=== PATIENT | female | born 1980 | race African-American/Black ===

== ENCOUNTER 2020-05-24 12:41 | Inpatient (IN) | payer OTHER ==
[~2020-05-24] VITALS: Ht 167.6 cm; Wt 87.2 kg
[2020-05-24] VITALS (8 sets, daily range): BP systolic 86–140; BP diastolic 58–90
[~2020-05-24 12:41] MED LIST: NALOXONE HCL INJ 0.4 MG/ML AMP ONE
[2020-05-24] MEDS: SODIUM CHLORIDE 0.9% 1000ML 1,000 ML IV SCH ×2 (13:51→19:55)
[2020-05-24] MEDS: ONDANSETRON HCL INJ 2MG/ML 2ML 2 MG/ML VIAL IV PRN (13:51)
[2020-05-24 13:57] LABS: BASOPHILS % 0.1 % (0.0-1.0); HEMATOCRIT 38.7 % (34.2-44.1); HEMOGLOBIN 11.3 g/dL (12.0-16.0); LYMPHOCYTES # (AUTO) 0.8 (1.0-3.2); LYMPHOCYTES % 11.7 % (18.0-39.1); MEAN CORPUSCULAR HEMOGLOBIN 30.6 pg (28-32); MEAN CORPUSCULAR HGB CONC 29.2 g/dL (31-35); MEAN CORPUSCULAR VOLUME 104.9 fL (81-99); MONOCYTES # (AUTO) 0.2 (0.2-0.8); MONOCYTES % 3.3 % (4.4-11.3); NEUTROPHILS # (AUTO) 5.8 (2.1-6.9); NEUTROPHILS % 84.5 % (38.7-80.0); PLATELET COUNT 155 x10e3/uL (140-360); RED BLOOD COUNT 3.69 x10e6/uL (3.6-5.1); RED CELL DISTRIBUTION WIDTH 12.3 % (11.7-14.4)
[2020-05-24] MEDS ORDERED: FENTANYL CITRATE/PF 100MCG/2 ML INJ IV PRN (14:00)
[2020-05-24 14:19] LABS: ALANINE AMINOTRANSFERASE 11 IU/L (0-55); ALBUMIN/GLOBULIN RATIO 0.9 (0.8-2.0); ALKALINE PHOSPHATASE 52 IU/L (40-150); ANION GAP 10.5 mmol/L (8-16); BLOOD UREA NITROGEN 20 mg/dL (7-26); BUN/CREATININE RATIO 25 (6-25); CHLORIDE 76 mmol/L (98-107); CREATININE, SERUM 0.81 mg/dL (0.57-1.11); EST GLOMERULAR FILTRATION RATE > 60 ML/MIN (60-); GLUCOSE 145 mg/dL (74-118); POTASSIUM 3.5 mmol/L (3.5-5.1); SODIUM 133 mmol/L (136-145)
[2020-05-24 14:21] LABS: CARBON DIOXIDE 50 mmol/L (22-29)
[2020-05-24 14:40] LABS: LIPASE 86 U/L (8-78)
[2020-05-24 15:22] LABS: HCG,QUANTITATIVE < 1.20 mIU/mL (0-10)
[2020-05-24] MEDS ORDERED: SODIUM CHLORIDE 0.9% 50ML 50 ML ONE (17:07)
[2020-05-24] MEDS ORDERED: IOPAMIDOL 370 MG/ML 200 ML INFUS..BTL INJ ONE (17:07)
[2020-05-24 17:30] LABS: SALICYLATE < 5.0 mg/dL (0-30)
[2020-05-24] MEDS ORDERED: ZOLPIDEM TARTRAT5 MG PO (18:20)
[2020-05-24] MEDS ORDERED: GABAPENTIN300 MG PO (18:20)
[2020-05-24] MEDS ORDERED: ATENOLOL50 MG PO (18:20)
[2020-05-24] MEDS ORDERED: MESTINON60 MG PO (18:21)
[2020-05-24] MEDS ORDERED: PREDNISONE5 MG PO (18:21)
[2020-05-24] MEDS ORDERED: HYDROCHLOROTHIA25 MG PO (18:23)
[2020-05-24] MEDS ORDERED: HYDROCORTISONE SOD SUCCINATE 100 MG VIAL IV ONE (18:45)
[2020-05-24] MEDS: CEFTRIAXONE SOD 1 GM/NS 50 ML 50 ML IV SCH (18:55)
[2020-05-24] MEDS: PYRIDOSTIGMINE BROMIDE 60 MG TAB PO SCH (19:00)
[2020-05-24] MEDS ORDERED: HYDROCORTISONE SOD SUCCINATE 100 MG VIAL IV SCH (19:00)
[2020-05-24] MEDS: AZITHROMYCIN 500MG/NS 250 ML 250 ML IV SCH (19:55)
[2020-05-24] MEDS ORDERED: NALOXONE HCL INJ 0.4 MG/ML AMP IV PRN (21:30)
[2020-05-24] MEDS ORDERED: SODIUM CHLORIDE 0.9% 1000ML 250 ML IV ONE (21:30)
[2020-05-25] VITALS (26 sets, daily range): BP systolic 104–163; BP diastolic 62–103
[2020-05-25] MEDS: PYRIDOSTIGMINE BROMIDE 60 MG TAB PO SCH ×3 (00:53→18:03)
[2020-05-25 02:48] LABS: AMPHETAMINES SCREEN,URINE NEGATIVE (NEGATIVE); BENZODIAZEPINES SCREEN,URINE NEGATIVE (NEGATIVE); BILIRUBIN,URINE NEGATIVE (NEGATIVE); CLARITY,URINE SL CLOUDY (CLEAR); COLOR,URINE YELLOW (YELLOW); KETONES,URINE NEGATIVE (NEGATIVE); LEUKOCYTE ESTERASE ,URINE NEGATIVE (NEGATIVE); NITRITE,URINE NEGATIVE (NEGATIVE); PHENCYCLIDINE SCREEN,URINE NEGATIVE (NEGATIVE); PROTEIN,URINE DIPSTICK 1+ (NEGATIVE); URINE UROBILINOGEN 1 mg/dL (0.2 - 1)
[2020-05-25 02:51] LABS: BACTERIA,URINE MODERATE /HPF; EPITHELIAL CELLS,URINE MODERATE /LPF
[2020-05-25 06:14] LABS: BASOPHILS % 0.1 % (0.0-1.0); HEMATOCRIT 33.2 % (34.2-44.1); HEMOGLOBIN 9.6 g/dL (12.0-16.0); LYMPHOCYTES # (AUTO) 1.3 (1.0-3.2); MEAN CORPUSCULAR HEMOGLOBIN 30.2 pg (28-32); MEAN CORPUSCULAR HGB CONC 28.9 g/dL (31-35); MEAN CORPUSCULAR VOLUME 104.4 fL (81-99); MONOCYTES # (AUTO) 0.6 (0.2-0.8); NEUTROPHILS # (AUTO) 5.4 (2.1-6.9); NEUTROPHILS % 73.2 % (38.7-80.0); PLATELET COUNT 120 x10e3/uL (140-360); RED BLOOD COUNT 3.18 x10e6/uL (3.6-5.1); RED CELL DISTRIBUTION WIDTH 12.4 % (11.7-14.4)
[2020-05-25 06:41] LABS: ANION GAP 12.5 mmol/L (8-16); BLOOD UREA NITROGEN 18 mg/dL (7-26); BUN/CREATININE RATIO 25 (6-25); CALCIUM 8.4 mg/dL (8.4-10.2); CHLORIDE 86 mmol/L (98-107); CREATININE, SERUM 0.72 mg/dL (0.57-1.11); EST GLOMERULAR FILTRATION RATE > 60 ML/MIN (60-); GLUCOSE 75 mg/dL (74-118); POTASSIUM 3.5 mmol/L (3.5-5.1)
[2020-05-25 06:55] LABS: CARBON DIOXIDE 45 mmol/L (22-29)
[2020-05-25 06:56] LABS: SODIUM 140 mmol/L (136-145)
[2020-05-25] MEDS: HYDROCORTISONE SOD SUCCINATE 100 MG VIAL IV SCH ×2 (07:44→18:03)
[2020-05-25] MEDS: SODIUM CHLORIDE 0.9% 1000ML 1,000 ML IV SCH (07:44)
[2020-05-25] MEDS: AZITHROMYCIN 500MG/NS 250 ML 250 ML IV SCH (18:03)
[2020-05-25] MEDS: CEFTRIAXONE SOD 1 GM/NS 50 ML 50 ML IV SCH (18:03)
[2020-05-25] MEDS: ZOLPIDEM TARTRATE 5 MG TAB PO PRN (20:38)
[2020-05-25] MEDS: ATENOLOL 50 MG TAB PO SCH (22:32)
[2020-05-26] VITALS (23 sets, daily range): BP systolic 102–146; BP diastolic 59–95
[2020-05-26] MEDS: PYRIDOSTIGMINE BROMIDE 60 MG TAB PO SCH ×3 (02:45→17:49)
[2020-05-26 05:08] LABS: BASOPHILS % 0.1 % (0.0-1.0); EOSINOPHILS % 0.1 % (0.0-6.0); HEMATOCRIT 31.3 % (34.2-44.1); LYMPHOCYTES # (AUTO) 1.8 (1.0-3.2); LYMPHOCYTES % 22.9 % (18.0-39.1); MEAN CORPUSCULAR HEMOGLOBIN 29.7 pg (28-32); MEAN CORPUSCULAR HGB CONC 28.8 g/dL (31-35); MEAN CORPUSCULAR VOLUME 103.3 fL (81-99); MONOCYTES # (AUTO) 0.6 (0.2-0.8); MONOCYTES % 7.9 % (4.4-11.3); NEUTROPHILS # (AUTO) 5.3 (2.1-6.9); NEUTROPHILS % 68.1 % (38.7-80.0); PLATELET COUNT 132 x10e3/uL (140-360); RED BLOOD COUNT 3.03 x10e6/uL (3.6-5.1); RED CELL DISTRIBUTION WIDTH 12.6 % (11.7-14.4)
[2020-05-26 05:20] LABS: ALANINE AMINOTRANSFERASE 8 IU/L (0-55); ALBUMIN 3.2 g/dL (3.5-5.0); ALKALINE PHOSPHATASE 36 IU/L (40-150); ANION GAP 10.3 mmol/L (8-16); BLOOD UREA NITROGEN 16 mg/dL (7-26); BUN/CREATININE RATIO 23 (6-25); CALCIUM 8.6 mg/dL (8.4-10.2); CHLORIDE 89 mmol/L (98-107); CREATININE, SERUM 0.71 mg/dL (0.57-1.11); EST GLOMERULAR FILTRATION RATE > 60 ML/MIN (60-); GLUCOSE 82 mg/dL (74-118); POTASSIUM 3.3 mmol/L (3.5-5.1); SODIUM 144 mmol/L (136-145)
[2020-05-26 05:27] LABS: CARBON DIOXIDE 48 mmol/L (22-29)
[2020-05-26] MEDS: HYDROCORTISONE SOD SUCCINATE 100 MG VIAL IV SCH ×2 (06:07→18:28)
[2020-05-26] MEDS ORDERED: ATENOLOL 50 MG TAB PO SCH (09:15)
[2020-05-26 10:02] LABS: ABG PH 7.36 (7.35-7.45)
[2020-05-26 10:03] LABS: ABG PCO2 96 mmHg (35-45); ABG PO2 72 mmHg (80-105)
[2020-05-26 10:04] LABS: ABG HCO3 54 mmol/L (22-26); ABG TCO2 > 50
[2020-05-26] MEDS: CEFTRIAXONE SOD 1 GM/NS 50 ML 50 ML IV SCH (17:49)
[2020-05-26] MEDS: AZITHROMYCIN 500MG/NS 250 ML 250 ML IV SCH (18:21)
[2020-05-26] MEDS ORDERED: HYDROCORTISONE SOD SUCCINATE 100 MG VIAL IV SCH (19:00)
[2020-05-26] MEDS: ATENOLOL 50 MG TAB PO SCH (20:41)
[2020-05-26] MEDS ORDERED: PYRIDOSTIGMINE BROMIDE 60 MG TAB PO SCH (21:00)
[2020-05-26] MEDS: ZOLPIDEM TARTRATE 5 MG TAB PO PRN (23:57)
[2020-05-27] VITALS (7 sets, daily range): BP systolic 117–138; BP diastolic 84–91
[2020-05-27] MEDS: PYRIDOSTIGMINE BROMIDE 60 MG TAB PO SCH ×6 (01:54→19:28)
[2020-05-27 05:05] LABS: MAGNESIUM 1.7 MG/DL (1.3-2.1); PHOSPHORUS 3.1 MG/DL (2.3-4.7)
[2020-05-27] MEDS ORDERED: HYDRALAZINE HCL 20 MG/ML VIAL IV PRN (05:15)
[2020-05-27] MEDS: HYDROCORTISONE SOD SUCCINATE 100 MG VIAL IV SCH (06:38)
[2020-05-27 08:30] LABS: BASOPHILS % 0.3 % (0.0-1.0); EOSINOPHILS % 0.1 % (0.0-6.0); HEMATOCRIT 34.3 % (34.2-44.1); HEMOGLOBIN 10.1 g/dL (12.0-16.0); LYMPHOCYTES # (AUTO) 1.5 (1.0-3.2); LYMPHOCYTES % 19.3 % (18.0-39.1); MEAN CORPUSCULAR HEMOGLOBIN 30.4 pg (28-32); MEAN CORPUSCULAR HGB CONC 29.4 g/dL (31-35); MEAN CORPUSCULAR VOLUME 103.3 fL (81-99); MONOCYTES # (AUTO) 0.6 (0.2-0.8); MONOCYTES % 7.5 % (4.4-11.3); NEUTROPHILS # (AUTO) 5.5 (2.1-6.9); NEUTROPHILS % 72.4 % (38.7-80.0); PLATELET COUNT 121 x10e3/uL (140-360); RED BLOOD COUNT 3.32 x10e6/uL (3.6-5.1); RED CELL DISTRIBUTION WIDTH 12.8 % (11.7-14.4)
[2020-05-27] MEDS ORDERED: PREDNISONE 10 MG TAB PO SCH (09:00)
[2020-05-27 09:11] LABS: ALANINE AMINOTRANSFERASE 10 IU/L (0-55); ALBUMIN 3.5 g/dL (3.5-5.0); ALBUMIN/GLOBULIN RATIO 1.1 (0.8-2.0); ALKALINE PHOSPHATASE 35 IU/L (40-150); ANION GAP 9.1 mmol/L (8-16); BLOOD UREA NITROGEN 16 mg/dL (7-26); BUN/CREATININE RATIO 22 (6-25); CALCIUM 8.9 mg/dL (8.4-10.2); CHLORIDE 91 mmol/L (98-107); CREATININE, SERUM 0.72 mg/dL (0.57-1.11); EST GLOMERULAR FILTRATION RATE > 60 ML/MIN (60-); GLUCOSE 88 mg/dL (74-118); POTASSIUM 3.1 mmol/L (3.5-5.1); SODIUM 142 mmol/L (136-145)
[2020-05-27 09:15] LABS: CARBON DIOXIDE 45 mmol/L (22-29)
[2020-05-27] MEDS: FAMOTIDINE 20 MG/2 ML VIAL IV SCH ×2 (10:05→19:25)
[2020-05-27] MEDS: AZATHIOPRINE 50 MG TAB PO SCH (10:25)
[2020-05-27] MEDS: CEFTRIAXONE SOD 1 GM/NS 50 ML 50 ML IV SCH (19:25)
[2020-05-27] MEDS: ATENOLOL 50 MG TAB PO SCH (20:14)
[2020-05-27] MEDS: ZOLPIDEM TARTRATE 5 MG TAB PO PRN (22:37)
[2020-05-28] VITALS (8 sets, daily range): BP systolic 102–146; BP diastolic 61–91
[2020-05-28] MEDS: PYRIDOSTIGMINE BROMIDE 60 MG TAB PO SCH ×6 (03:48→20:29)
[2020-05-28 05:08] LABS: BASOPHILS % 0.1 % (0.0-1.0); EOSINOPHILS # (AUTO) 0.1 (0.0-0.4); EOSINOPHILS % 0.9 % (0.0-6.0); HEMATOCRIT 32.7 % (34.2-44.1); HEMOGLOBIN 9.6 g/dL (12.0-16.0); LYMPHOCYTES # (AUTO) 2.6 (1.0-3.2); LYMPHOCYTES % 38.1 % (18.0-39.1); MEAN CORPUSCULAR HEMOGLOBIN 31.2 pg (28-32); MEAN CORPUSCULAR HGB CONC 29.4 g/dL (31-35); MEAN CORPUSCULAR VOLUME 106.2 fL (81-99); MONOCYTES # (AUTO) 0.6 (0.2-0.8); NEUTROPHILS # (AUTO) 3.5 (2.1-6.9); NEUTROPHILS % 51.5 % (38.7-80.0); PLATELET COUNT 146 x10e3/uL (140-360); RED BLOOD COUNT 3.08 x10e6/uL (3.6-5.1); RED CELL DISTRIBUTION WIDTH 12.9 % (11.7-14.4)
[2020-05-28 05:33] LABS: ANION GAP 9.8 mmol/L (8-16); BLOOD UREA NITROGEN 17 mg/dL (7-26); BUN/CREATININE RATIO 22 (6-25); CHLORIDE 94 mmol/L (98-107); CREATININE, SERUM 0.76 mg/dL (0.57-1.11); EST GLOMERULAR FILTRATION RATE > 60 ML/MIN (60-); GLUCOSE 83 mg/dL (74-118); SODIUM 144 mmol/L (136-145)
[2020-05-28 05:39] LABS: CARBON DIOXIDE 43 mmol/L (22-29); POTASSIUM 2.8 mmol/L (3.5-5.1)
[2020-05-28] MEDS ORDERED: POTASSIUM CHLORIDE 20 MEQ TAB CR PO ONE (08:00)
[2020-05-28] MEDS ORDERED: POTASSIUM CHLORIDE 10MEQ/100ML 200 ML IV ONE (08:00)
[2020-05-28] MEDS: FAMOTIDINE 20 MG/2 ML VIAL IV SCH ×2 (08:14→16:55)
[2020-05-28] MEDS: AZATHIOPRINE 50 MG TAB PO SCH (08:15)
[2020-05-28] MEDS ORDERED: MAGNESIUM SULFATE 2GM/50ML IV ONE (08:30)
[2020-05-28] MEDS ORDERED: MAGNESIUM SULFATE 2GM/50ML 50 ML IV ONE (09:00)
[2020-05-28] MEDS: PREDNISONE 10 MG TAB PO SCH (09:00)
[2020-05-28] MEDS ORDERED: PREDNISONE 20 MG TAB PO ONE (15:00)
[2020-05-28] MEDS: CEFTRIAXONE SOD 1 GM/NS 50 ML 50 ML IV SCH (18:02)
[2020-05-28] MEDS: ATENOLOL 50 MG TAB PO SCH (20:30)
[2020-05-28] MEDS: ZOLPIDEM TARTRATE 5 MG TAB PO PRN (22:20)
[2020-05-29] VITALS (7 sets, daily range): BP systolic 103–143; BP diastolic 65–81
[2020-05-29] MEDS: PYRIDOSTIGMINE BROMIDE 60 MG TAB PO SCH ×6 (00:23→20:46)
[2020-05-29 05:38] LABS: BASOPHILS % 0.1 % (0.0-1.0); EOSINOPHILS % 0.1 % (0.0-6.0); HEMATOCRIT 36.4 % (34.2-44.1); HEMOGLOBIN 10.5 g/dL (12.0-16.0); LYMPHOCYTES # (AUTO) 2.1 (1.0-3.2); LYMPHOCYTES % 23.1 % (18.0-39.1); MEAN CORPUSCULAR HEMOGLOBIN 30.4 pg (28-32); MEAN CORPUSCULAR HGB CONC 28.8 g/dL (31-35); MEAN CORPUSCULAR VOLUME 105.5 fL (81-99); MONOCYTES # (AUTO) 0.6 (0.2-0.8); MONOCYTES % 6.5 % (4.4-11.3); NEUTROPHILS # (AUTO) 6.2 (2.1-6.9); NEUTROPHILS % 69.9 % (38.7-80.0); PLATELET COUNT 160 x10e3/uL (140-360); RED BLOOD COUNT 3.45 x10e6/uL (3.6-5.1); RED CELL DISTRIBUTION WIDTH 12.8 % (11.7-14.4)
[2020-05-29 06:19] LABS: ANION GAP 10.7 mmol/L (8-16); BLOOD UREA NITROGEN 13 mg/dL (7-26); BUN/CREATININE RATIO 19 (6-25); CHLORIDE 96 mmol/L (98-107); EST GLOMERULAR FILTRATION RATE > 60 ML/MIN (60-); GLUCOSE 89 mg/dL (74-118); POTASSIUM 3.7 mmol/L (3.5-5.1); SODIUM 144 mmol/L (136-145)
[2020-05-29 06:23] LABS: CARBON DIOXIDE 41 mmol/L (22-29)
[2020-05-29] MEDS: FAMOTIDINE 20 MG/2 ML VIAL IV SCH ×2 (09:00→17:16)
[2020-05-29] MEDS: AZATHIOPRINE 50 MG TAB PO SCH (10:17)
[2020-05-29] MEDS: PREDNISONE 10 MG TAB PO SCH (10:17)
[2020-05-29] MEDS: CEFTRIAXONE SOD 1 GM/NS 50 ML 50 ML IV SCH (17:16)
[2020-05-29] MEDS: ATENOLOL 50 MG TAB PO SCH (20:47)
[2020-05-30] VITALS (7 sets, daily range): BP systolic 100–160; BP diastolic 61–102
[2020-05-30] MEDS: PYRIDOSTIGMINE BROMIDE 60 MG TAB PO SCH ×6 (04:00→19:55)
[2020-05-30] MEDS: PREDNISONE 10 MG TAB PO SCH (09:21)
[2020-05-30] MEDS: AZATHIOPRINE 50 MG TAB PO SCH (09:21)
[2020-05-30] MEDS: FAMOTIDINE 20 MG/2 ML VIAL IV SCH ×2 (09:21→16:57)
[2020-05-30] MEDS ORDERED: PREDNISONE 10 MG TAB PO ONE (11:45)
[2020-05-30] MEDS: PREDNISONE 20 MG TAB PO SCH (12:00)
[2020-05-30] MEDS: CEFTRIAXONE SOD 1 GM/NS 50 ML 50 ML IV SCH (16:57)
[2020-05-30] MEDS: ONDANSETRON HCL INJ 2MG/ML 2ML 2 MG/ML VIAL IV PRN (19:56)
[2020-05-30] MEDS: LORAZEPAM 0.5 MG TAB PO PRN (19:56)
[2020-05-30] MEDS: ATENOLOL 50 MG TAB PO SCH (19:56)
[2020-05-30] MEDS: ZOLPIDEM TARTRATE 5 MG TAB PO PRN ×3 (19:56→20:59)
[2020-05-31] VITALS: BP 108/53
[2020-05-31] MEDS: PYRIDOSTIGMINE BROMIDE 60 MG TAB PO SCH ×4 (00:27→11:26)
[2020-05-31] MEDS: LORAZEPAM 0.5 MG TAB PO PRN ×2 (01:53→12:59)
[2020-05-31 04:00] VITALS: BP 90/58
[2020-05-31 05:43] LABS: BASOPHILS % 0.2 % (0.0-1.0); EOSINOPHILS % 0.4 % (0.0-6.0); HEMATOCRIT 32.7 % (34.2-44.1); HEMOGLOBIN 9.4 g/dL (12.0-16.0); LYMPHOCYTES # (AUTO) 1.6 (1.0-3.2); LYMPHOCYTES % 19.4 % (18.0-39.1); MEAN CORPUSCULAR HEMOGLOBIN 30.7 pg (28-32); MEAN CORPUSCULAR HGB CONC 28.7 g/dL (31-35); MEAN CORPUSCULAR VOLUME 106.9 fL (81-99); MONOCYTES # (AUTO) 0.6 (0.2-0.8); MONOCYTES % 7.2 % (4.4-11.3); NEUTROPHILS # (AUTO) 5.8 (2.1-6.9); NEUTROPHILS % 72.3 % (38.7-80.0); PLATELET COUNT 167 x10e3/uL (140-360); RED BLOOD COUNT 3.06 x10e6/uL (3.6-5.1); RED CELL DISTRIBUTION WIDTH 12.9 % (11.7-14.4)
[2020-05-31 06:07] LABS: ANION GAP 9.4 mmol/L (8-16); BLOOD UREA NITROGEN 11 mg/dL (7-26); BUN/CREATININE RATIO 15 (6-25); CALCIUM 8.8 mg/dL (8.4-10.2); CHLORIDE 97 mmol/L (98-107); CREATININE, SERUM 0.72 mg/dL (0.57-1.11); EST GLOMERULAR FILTRATION RATE > 60 ML/MIN (60-); GLUCOSE 70 mg/dL (74-118); POTASSIUM 3.4 mmol/L (3.5-5.1); SODIUM 145 mmol/L (136-145)
[2020-05-31 06:50] LABS: CARBON DIOXIDE 42 mmol/L (22-29)
[2020-05-31 08:00] VITALS: BP 101/70
[2020-05-31 09:00] VITALS: BP 101/70
[2020-05-31] MEDS ORDERED: IMMU GLOBULIN,GAMMA (IGG) 200 ML IV SCH (09:00)
[2020-05-31] MEDS: PREDNISONE 20 MG TAB PO SCH (09:17)
[2020-05-31] MEDS: AZATHIOPRINE 50 MG TAB PO SCH (09:17)
[2020-05-31] MEDS: FAMOTIDINE 20 MG/2 ML VIAL IV SCH (09:18)
[2020-05-31 12:00] VITALS: BP 121/71
[2020-05-31] MEDS ORDERED: POTASSIUM CHLORIDE 20 MEQ TAB CR PO ONE (12:30)
[2020-05-31] MEDS ORDERED: Azathioprine PO (13:02)
[2020-05-31] MEDS ORDERED: MESTINON60 MG PO (13:02)
[2020-05-31] MEDS ORDERED: ATENOLOL50 MG PO (13:02)
[2020-05-31] MEDS ORDERED: PREDNISONE20 MG PO ×2 (13:02→13:08)
[2020-05-31] MEDS ORDERED: PREDNISONE10 MG PO (13:10)
== END 2020-05-31 14:10 | disposition home or self-care (01) | DRG 871 ==
LOC: ER 13:03 → ERHOLD 17:03 → ICU 18:15 → IMCU 05-26 20:22
PROVIDERS: ADMIT Internal Medicine; ATTEND Internal Medicine
DX: A41.9 Sepsis, unspecified organism (principal); J15.9 Unspecified bacterial pneumonia; J96.20 Acute and chronic respiratory failure, unspecified whether with hypoxia or hypercapnia; J96.21 Acute and chronic respiratory failure with hypoxia; E87.3 Alkalosis; N39.0 Urinary tract infection, site not specified; E87.4 Mixed disorder of acid-base balance; G70.00 Myasthenia gravis without (acute) exacerbation; E87.6 Hypokalemia; D64.9 Anemia, unspecified; D69.6 Thrombocytopenia, unspecified; Z11.59 Encounter for screening for other viral diseases
CPT/HCPCS: 36415; 36600; 70450; 71045; 74177; 76705; 80048; 80053; 80307; 80320; 80329; 81001; 82805; 83605; 83690; 83735; 84100; 84484; 84702; 85025; 87040; 93005; 93306; 94660; 97139; 99251; 99284; J0456; J0696; J1561; J1642; J1720; J2310; J2405; J3010; J3475; J3480; J7030; J7512; Q9967; U0002